=== PATIENT | male | born 2000 | race Caucasian/White ===

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

== ENCOUNTER 2020-01-02 13:52 | Emergency (ER) | payer OTHER ==
[~2020-01-02] VITALS: Ht 172.7 cm; Wt 72.6 kg
[2020-01-02] MEDS ORDERED: IBUP400 PO (17:07)
== END 2020-01-02 17:37 | disposition home or self-care (01) ==
LOC: ER 13:52
DX: M25.461 Effusion, right knee (principal); Z88.2 Allergy status to sulfonamides; Z87.891 Personal history of nicotine dependence
CPT/HCPCS: 99282

== ENCOUNTER 2020-01-18 11:32 | Day surgery (SDC) | payer OTHER ==
[~2020-01-18] VITALS: Ht 174 cm; Wt 64.4 kg
[~2020-01-18 11:32] MED LIST changes: +IBUP400 PO
--- NOTE | 2020-01-18 15:16 | NUR ---
01/18/20 1516 Charline Hughes ALL COUNTS CORRECT.
--- NOTE | 2020-01-18 16:10 | NUR ---
PT C/O NAUSEA UPON ARRIVAL TO STEP. MEDICATED AT THIS TIME WITH IV ZOFRAN PER ANESTHESIA ORDERS. PT DENIES PAIN. SLEEPS IF LEFT UNDISTURBED. MOTHER UPDATED ON STATUS OVER PHONE - APPROVED BY PATIENT. CAP REFILL TO RIGHT FOOT BRISK AND LESS THAN 3 SECONDS.
--- NOTE | 2020-01-18 16:36 | NUR ---
PT CONT TO C/O NAUSEA - MEDICATED WITH REGLAN PER ORDERS. DR NORTON IN TO SEE PATIENT AND REVIEW PROCEDURE. MOTHER UPDATED ON INFORMATION FROM MD WITH PATIENT APPROVAL. ATTEMPTED TO CALL GIRLFRIEND PER PATIENT REQUEST TO REVIEW INFORMATION/DC INSTRUCTIONS WITH HER. SHE IS AT WORK AND UNABLE TO ANSWER.
--- NOTE | 2020-01-18 17:06 | NUR ---
PT DC HOME AT THIS TIME. VOMITED X 1 WITH IMPROVEMENT OF NAUSEA AFTER. SIPPING ON PO FLUIDS SLOWLY AND WITHOUT DIFFICULTY. ASSISTED TO DRESS AND THEN PIVOT INTO WHEELCHAIR. PT TOLERATED ACTIVITY WELL. BROTHER TO HOSPITAL TO PICK PATIENT UP - PIVOT TRANSFER INTO CAR WITHOUT DIFFICULTY. CRUTCHES WITH PATIENT FOR HOME USE. AFTER PT LEFT, THIS RN NOTED IV WAS STILL IN PLACE -IMMEDIATE PHONE CALL TO PATIENT'S MOTHER TO HAVE HIM RETURN TO HOSPITAL FOR IV D/C. SHE AGREES AND STATES SHE WILL HAVE HIM RETURN TO HOSPITAL.
--- NOTE | 2020-01-18 17:26 | NUR ---
PT RETURNED TO HOSPITAL. IV DC TIP INTACT. DRESSED WITH GAUZE AND COBAN. PT TOLERATED WELL.
== END 2020-01-18 22:41 | disposition home or self-care (01) ==
LOC: ORSCMMR 11:32
PROVIDERS: Orthopaedic Surgery
PROC: 0SBC4ZZ Excision of Right Knee Joint, Percutaneous Endoscopic Approach (ICD-10-PCS; principal; 2020-01-18 14:30)
DX: S83.251A Bucket-handle tear of lateral meniscus, current injury, right knee, initial encounter (principal)
CPT/HCPCS: J0171; J1100; J2250; J2405; J2704; J2765; J3010; J3370; J7120

== ENCOUNTER → 2020-09-21 | Outpatient (CLI) | payer OTHER | LOC: LAB SHORT 09:30 | DX: B00.9 Herpesviral infection, unspecified (principal) | CPT/HCPCS: 87252; 87254 ==

== ENCOUNTER 2022-07-12 17:42 | Emergency (ER) | payer OTHER ==
[~2022-07-12] VITALS: Ht 175.3 cm; Wt 72.6 kg
[2022-07-12] MEDS ORDERED: IBUP600 PO (23:03)
== END 2022-07-12 23:17 | disposition home or self-care (01) ==
LOC: ER 17:42
DX: S90.31XA Contusion of right foot, initial encounter (principal); W22.03XA Walked into furniture, initial encounter; Y93.83 Activity, rough housing and horseplay; Z88.0 Allergy status to penicillin; Z88.5 Allergy status to narcotic agent; Z87.891 Personal history of nicotine dependence
CPT/HCPCS: 73610; A9270; J1885

== ENCOUNTER 2022-07-14 17:56 | Emergency (ER) | payer OTHER ==
[~2022-07-14] VITALS: Ht 175.3 cm; Wt 72.6 kg
[~2022-07-14 17:56] MED LIST changes: +IBUP600 PO
== END 2022-07-14 18:44 | disposition home or self-care (01) ==
LOC: ER 17:56
DX: S46.911A Strain of unspecified muscle, fascia and tendon at shoulder and upper arm level, right arm, initial encounter (principal); X50.1XXA Overexertion from prolonged static or awkward postures, initial encounter; Z79.899 Other long term (current) drug therapy
CPT/HCPCS: 99282

== ENCOUNTER → 2023-08-11 | Outpatient (CLI) | payer OTHER | LOC: LAB 10:45 → LAB SHORT 10:45 | DX: H60.391 Other infective otitis externa, right ear (principal) | CPT/HCPCS: 87070; 87205 ==